=== PATIENT | female | born 1945 | race Caucasian/White ===

== ENCOUNTER → 2018-01-04 | Day surgery (SDC) | payer OTHER, MEDICARE ==
[~2018-01-04] VITALS: Ht 157.5 cm; Wt 80.7 kg
--- NOTE | 2018-01-04 11:48 | Operative Report ---
Operative/Inv Procedure Report Surgery Date: 01/04/18 Name of Procedure: Ultrasound guidance for vascular access, aortogram, selective right renal angiogram, right renal artery angioplasty with a 5 mm Lutonix drug-coated balloon, placement of Exoseal closure device Pre-Operative Diagnosis: Moderate to severe right renal in-stent stenosis, left mild renal artery stenosis Post-Operative Diagnosis: Moderate to severe right renal in-stent stenosis, left mild renal artery stenosis Estimated Blood Loss: less than 50ml Surgeon/Nursing Attendant: Sawyer Wilson MD Anesthesia: local monitored anesthesi Complications: None Condition: Stable to PACU Operative Indication: 72-year-old female with a history of severe hypertension. She has been treated with 3-4 blood pressure meds including clonidine. Her blood pressure remains elevated. She runs anywhere from 190-200 systolic over 90 diastolic. Previous imaging possibly suggests right renal artery restenosis. She had a previously placed stent several years ago. Recent CT imaging is inadequate. Therefore repeat angiography with intention to treat is indicated. Patient accepted the risks of procedure including renal failure, bleeding and limb loss. Operative/Procedure Note Note: Patient was brought to the operating room and laid supine on the table. After adequate anesthesia, IV lines, a timeout was held in accordance with [facility] policy. The right common femoral artery was selected for access. This was punctured with a 21-gauge micropuncture needle. Through this a 0.018 inch wire was placed and a 5 [place] coaxial dilator was inserted. Ultrasound noted a patent artery which was saved. A 5 [place] sheath was then placed. Aortography was then performed by placing a Bentson wire into the juxtarenal aorta. This demonstrates patent bilateral renal arteries. There is a previously placed right renal stent. This demonstrates possible moderate to severe disease. The left renal artery demonstrated only mild disease. There is no hemodynamically significant stenosis on the left. Attention was then turned to intervention. The patient was bolused with 4000 units of heparin. An Aptus Tourguide sheath was inserted into the right femoral artery. This was used to further selectively image the right renal artery. This confirmed the moderate to severe stenosis with selective catheterization. The artery was then traversed with a Glidewire and glide catheter. A Urena wire was placed across the lesion. A 5 mm drug-coated Lutonix PLATE COLORER balloon. Selective completion angiography demonstrates in-line flow with no evidence of dissection and no significant residual stenosis. The catheter sheath and wire systems were then removed. The patient was transported to the recovery area stable awake and alert. An Exoseal closure device was used to seal the artery and manual compression was held for 5 minutes. The patient tolerated the procedure well.
--- NOTE | 2018-01-04 17:04 | RADIOLOGY REPORT ---
EXAMINATION: IMAGING DURING ANGIOGRAPHY CLINICAL INFORMATION: Renal angiograms COMPARISON: None TECHNIQUE: Imaging was provided during angiograms. A [id number] OEC C-arm was utilized. Fluoroscopy time was 8 minutes 27 seconds. FINDINGS: Please see report by performing physician. IMPRESSION: . Fluoroscopy provided during angiography.
== END ==
LOC: STS 01:34
DX: T82.858A Stenosis of other vascular prosthetic devices, implants and grafts, initial encounter (principal); I70.1 Atherosclerosis of renal artery; I10 Essential (primary) hypertension
CPT/HCPCS: 76000; C1725; C1760; C2623; J1644; J2001; J2250; Q9967